=== PATIENT | male | born 1965 | race African-American/Black ===

== ENCOUNTER → 2022-05-30 09:04 | Outpatient (BNVA) | payer OTHER, SELFPAY | PROVIDERS: PCP Internal Medicine; Visit Provider Nurse Practitioner Family | DX: Z13.89 Encounter for screening for other disorder (principal) ==

== ENCOUNTER 2022-06-10 11:34 | Outpatient (REF) | payer OTHER, SELFPAY ==
[2022-06-10 12:44] LABS: Blood Urea Nitrogen 13 mg/dL (9-16); Estimated Glomerular Filt Rate > 60
== END 2022-06-10 11:35 | disposition home or self-care (01) ==
LOC: HO.LAB 11:34
PROVIDERS: PCP Internal Medicine; Visit Provider Nurse Practitioner Family
DX: R31.29 Other microscopic hematuria (principal)
CPT/HCPCS: 36415; 82565; 84520

== ENCOUNTER 2022-07-20 09:05 | Outpatient (REF) | payer OTHER, SELFPAY ==
--- NOTE | ~2022-07-20 | CT_ITS ---
EXAMINATION: CT ABDOMEN AND PELVIS WITHOUT AND WITH CONTRAST CLINICAL INFORMATION: Gross hematuria COMPARISON: None available. TECHNIQUE: Noncontrast CT of the abdomen and pelvis is performed followed by split bolus contrast-enhanced images using 85 mL Omnipaque 350 contrast.? Postcontrast imaging is performed during the combined nephrogram and excretion phase. Sagittal and coronal reformatted images were obtained on the technologist's workstation for both the precontrast and postcontrast phases. This CT examination was performed using dose optimization techniques as appropriate, variously including the following: *Automated exposure control *Adjustment of mA and/or kV according to patient size (this includes techniques or standardized protocols for targeted exams where dose is matched to indication/reason for exam; i.e. extremities or head) *Use of iterative reconstruction technique DLP: 684 mGy-cm FINDINGS: LUNG BASES: The visualized lung bases are unremarkable. LIVER, GALLBLADDER, AND BILIARY TREE: The liver is normal in size, shape, and attenuation. Small 3 mm low-attenuation lesion in the right lobe of the liver axial image 19 series 8. This is too small to definitively characterize but probably represents a cyst. No other focal liver lesion. No biliary duct dilatation. Normal gallbladder. PANCREAS: Unremarkable. SPLEEN: The spleen is small. ADRENAL GLANDS: Unremarkable. KIDNEYS AND URETERS: No stone or mass is seen. There are small bilateral renal cysts. No imaging follow-up recommended. The kidneys are lobulated in shape. There is mild fullness of both renal pelvises. There may be mild left calyceal dilatation. The ureters are normal in caliber. No stone. BLADDER: There is a filling defect seen in the dependent posterior inferior bladder wall. This area measures 0.6-1.9 cm in AP and transverse dimension axial image 5 series 9 and is questionable for a mass. The bladder is otherwise normal. GASTROINTESTINAL TRACT: Mild diverticulosis of the colon. Small and large bowel is otherwise normal. The appendix is normal. ABDOMINAL WALL: No significant hernia is appreciated. LYMPH NODES: Normal. VASCULAR: Atherosclerotic disease. No aneurysm. PELVIC VISCERA: Unremarkable. OSSEUS STRUCTURES: Spondylosis, spondylolysis and degenerative disc disease at L5-S1. Old trauma to the lower sacrum and coccyx. CT/CT urogram IMPRESSION: 1. Question 0.6-1.9 cm mass in the dependent posterior inferior bladder wall. Correlation with cystoscopy recommended. Mild fullness of both renal pelvises. No stone or mass seen. 2. Findings will be communicated by the [facility] work flow batch maker.
[2022-07-20] MEDS: iohexoL 350 MG/ML 100 ML INFUS..BTL IV (09:45)
[2022-07-20 13:17] LABS: Creatinine POC 0.7 mg/dL (0.5-1.4); GFR POC 60
== END 2022-07-20 09:06 | disposition home or self-care (01) ==
LOC: HO.CT 09:05
PROVIDERS: PCP Internal Medicine; Visit Provider Nurse Practitioner Family
DX: R31.0 Gross hematuria (principal)
CPT/HCPCS: 74178; 82565; Q9967

== ENCOUNTER 2022-07-22 15:13 | Outpatient (AMB) | payer OTHER, SELFPAY ==
--- NOTE | 2022-07-22 15:18 | MHC.OFFVIS ---
Intake Intake Visit Reasons: cysto/CT/labs(07/20 CT) Intake Note: Patient is present for Cystoscopy Urology Med: none Antibiotic Allergy: None Blood Thinner: None Allergies No Known Allergies Allergy (Verified 10/21/22 11:14) HPI HPI Comments History of Present Illness Details Alfonso is a pleasant male. He is a patient of . He seen for the following urologic conditions - microscopic hematuria Here for check cystoscopy Clear on evaluation Has three-month follow-up with nurse practitioner for lab work Microscopic hematuria Longstanding smoking history 40 pack per year Prior evaluation 2004 for cystoscopy Denies exposures PSA 01/01 0.2 Imaging - CT urogram normal PFSH Medical History Anxiety Hematuria, microscopic Hypertension Impaired fasting glucose Nocturia Tobacco use Review of Systems Const Denies chills and Denies fever(s) Card Reports no additional complaints and Denies syncope Resp Denies cough GI Denies abdominal pain and Denies heartburn Reports as per HPI and Denies change in libido Neuro Denies syncope Psych Denies change in libido Endo Denies change in libido Physical Exam Const General: cooperative, healthy appearing, comfortable and no acute distress Orientation/consciousness: patient oriented x3 HEENT Face and sinus: Yes normal facial exam Mouth: moist mucous membranes Neck Neck: Yes normal visual inspection, Yes full ROM and Yes trachea midline Chest Chest palpation & inspection: normal inspection of the chest Resp Effort & Inspection: normal respiratory effort, able to speak in complete sentences and no respiratory distress GI Inspection: Yes normal to inspection Back/Spine/Pelvis Cervical Spine: normal cervical lordosis Thoracic/Lumbar Spine: thoracic and lumbar spine normal to inspection Skin General skin exam: no rashes or lesions noted Neuro General: patient oriented x3, gait normal, tone normal and moves all extremities Extrem General: Yes normal to inspection and Yes capillary refill normal Office Procedures Cystoscopy Consent Discussed risk and benefit or proposed procedure with the patient. Information consent for procedure given to the patient. Discussed technical aspects, risks, benefits and alternatives in full. Addressed all of the patient's questions and concerns regarding the procedure. The patient demonstrated knowledge and understanding. They wish to proceed with this procedure. Preparation The patient was prepped in the usual manner. A pulmonologist intensivist was present and in the room. Genitalia was prepped with betadine solution in a sterile manner. Lidocaine Jelly 2% was placed into the urethra and 16Fr flexible Olympus cystoscope was inserted into the meatus after adequate lubrication. Procedure Meatus circumcised Urethra anterior posterior urethra normal Prostatic Urethra unremarkable Bladder examination with retroflexion of cystoscope Bladder Orifices normal shape and position Bladder Capacity - Trabeculations - Cellule Formation - Diverticulum Formation - Mucosal Erythema -- Bladder Tumor - [id number] Procedure code (CPT) selection complete Office Meds lidocaine HCl Performing Provider: Mustapha Schulz MD Administered by: James Merino RN on 07/22/22 15:18 Dose Route Admin Location Lot Number Expiration Date NDC Gluing Crew Leader 10 mL intra-urethral nitrofurantoin monohyd/m-cryst 100 mg Performing Provider: Mustapha Schulz MD Administered by: James Merino RN on 07/22/22 15:18 Dose Route Admin Location Lot Number Expiration Date NDC Gluing Crew Leader 100 mg PO Results AMB Urinalysis, Automated UA Leukoctes 0 Fallon/uL Last Edit by Roz Perez RN on 07/22/22 15:49 UA Nitrite Last Edit by Roz Perez RN on 07/22/22 15:49 UA Urobilinogen 0.2 mg/dL Last Edit by Roz Perez RN on 07/22/22 15:49 UA Protein 15 mg/dL Last Edit by Roz Perez RN on 07/22/22 15:49 UA pH 6 Last Edit by Roz Perez RN on 07/22/22 15:49 UA Blood 0.2 Richard/uL Last Edit by Roz Perez RN on 07/22/22 15:49 UA Specific [place] 1.020 Last Edit by Roz Perez RN on 07/22/22 15:49 UA Ketone Last Edit by Roz Perez RN on 07/22/22 15:49 UA Bilirubin 0 mg/dL Last Edit by Roz Perez RN on 07/22/22 15:49 UA Glucose mg/dL Last Edit by Roz Perez RN on 07/22/22 15:49 Results Reviewed Results Reviewed: Laboratory Last Values Urine pH (Auto) 6 07/22/22 15:46 Specific [place] (Auto) 1.020 07/22/22 15:46 Urine Protein (Auto) 15 mg/dL 07/22/22 15:46 Urine Blood (Auto) 0.2 Richard/uL 07/22/22 15:46 Urine Bilirubin (Auto) 0 mg/dL 07/22/22 15:46 Urine Urobilinogen (Auto) 0.2 mg/dL 07/22/22 15:46 Leukocyte Esterase (Auto) 0 Fallon/uL 07/22/22 15:46 Assessment & Plan Assessment & Plan (1) Microscopic hematuria: Code(s): R31.29 - Other microscopic hematuria Plan Three month follow-up Orders: Orders Prostate Specific Antigen 3 Months R31.29 - Other microscopic hematuria AMB Cystoscopy 07/22/22 R31.29 - Other microscopic hematuria AMB Urinalysis Automated 07/22/22 Z13.9 - Encounter for screening, unspecified Patient Instructions: Imaging studies, laboratory and physical exam results were discussed and reviewed in detail. No major barriers to patient understanding were identified. An opportunity to ask questions regarding the treatment plan was provided. All questions were answered. The patient expressed understanding and agreement with the above treatment plan. The patient is aware they should contact our office by phone for worsening of their current condition or the appearance of new urologic symptoms. Compliance is encouraged with any medications and followup testing that is ordered. It is a privilege to participate in the urologic care of your patient. If you have any questions or concerns regarding treatment for the above conditions, or other urologic issues, please do not hesitate to contact me. The office telephone contact is [phone]. This note is constructed using voice recognition software. While every effort has been made to ensure accuracy extrusion press adjuster errors may have been included. Yours sincerely, Dr Mustapha Schulz MD, YUDI [facility] - Urology Providers of Expert, Compassionate Care for the Genitourinary System Coding Level of Care Code Est Pt Level 3 (36358) Diagnoses Microscopic hematuria R31.29 CPT Codes Cystoscopy - CPT: 02907-[id number] ([id number])
== END 2022-07-22 16:16 | disposition home or self-care (01) ==
LOC: HO.HUSH 15:13
PROVIDERS: PCP Internal Medicine; Visit Provider Urology
DX: R31.29 Other microscopic hematuria (principal)
CPT/HCPCS: 52000; 99213

== ENCOUNTER → 2022-07-22 15:13 | Outpatient (BNVA) | payer OTHER, SELFPAY | PROVIDERS: PCP Internal Medicine; Visit Provider Urology | DX: R31.29 Other microscopic hematuria (principal); R35.1 Nocturia | CPT/HCPCS: 52000 ==

== ENCOUNTER 2022-10-18 14:18 | Outpatient (REF) | payer OTHER, SELFPAY ==
[2022-10-18 16:17] LABS: Prostate Specific Antigen 0.29 ng/mL (<0.05-4.0)
== END 2022-10-18 14:19 | disposition home or self-care (01) ==
LOC: HO.LAB 14:18
PROVIDERS: PCP Internal Medicine; Visit Provider Urology
DX: R31.29 Other microscopic hematuria (principal); Z12.5 Encounter for screening for malignant neoplasm of prostate
CPT/HCPCS: 36415; 84153

== ENCOUNTER 2022-10-21 10:51 | Outpatient (AMB) | payer OTHER, SELFPAY ==
--- NOTE | 2022-10-21 10:52 | A.OFFVIS_ITS ---
Intake Intake Visit Reasons: 3 month follow up Intake Note: Patient presents for follow up PSA lab/Micro Hematuria (psa 0.29) Urology Medications: Tadalafil Blood Thinner: None Associate Professor Of Biology Required: No Accompanied by: Self / Same As Patient Allergies No Known Allergies Allergy (Verified 10/21/22 11:14) Medication List - Last Reconciled 10/21/22 by VIJAY VidalP- amlodipine 10 mg PO DAILY irbesartan 300 mg PO DAILY tadalafil (Cialis) 5 mg PO DAILY 90 days HPI HPI Comments History of Present Illness Details Alfonso is a pleasant 57 year old male patient of Dr. Parminder Dubois. He has a past medical history of anxiety, hypertension, and nocturia He presents to the office today for follow-up. Of note, patient was seen approximately 3 months ago at which time he underwent an in office cystoscopy for microscopic hematuria in the setting of nicotine dependence. CT with question of 0.6-1.9 cm mass in the dependent posterior inferior bladder wall. However, during in office cystoscopy no suspicious bladder lesions noted throughout the bladder. When asked patient reports to be doing and feeling well. He reports significant improvement in nocturia and lower urinary tract symptoms on 5 mg of tadalafil daily and is requesting a refill. He otherwise denies any issues or concerns at this time. Unable to obtain urine for urinalysis as patient is unable to void at this time. When asked he currently denies urinary urgency, urinary frequency, incontinence, nocturia, hematuria, dysuria, foul smelling urine, changes to urinary stream, flank pain, fever, and or chills. He is happy with his current voiding parameters on 5 mg of Cialis daily. Discussed at length importance of limiting/quitting smoking for im provement in urinary symptoms as well as for overall health and well-being. In review of patient's chart PSAs are as follows 01/01--0.2 11/02-- 0.3 Discussed at length potential causes for microscopic hematuria and surveillance monitoring. Discussed obtaining urine cytology. He otherwise offers no issues or concerns at this time. PFSH Medical History Anxiety Hematuria, microscopic Hypertension Impaired fasting glucose Nocturia Tobacco use Review of Systems Const All systems reviewed & are unremarkable except as noted in HPI and below Reports no additional complaints Eyes Reports no additional complaints ENT Reports no additional complaints Card Reports no additional complaints Resp Reports no additional complaints GI Reports no additional complaints Reports as per HPI Musc Reports no additional complaints Neuro Reports no additional complaints Psych Reports no additional complaints Endo Reports no additional complaints Alvin/Lymph Reports no additional complaints Aller/Immun Reports no additional complaints Physical Exam Const General: cooperative, healthy appearing, comfortable, no acute distress, well developed, alert and awake Nutritional Appearance: average body habitus Orientation/consciousness: patient oriented x3 Limitations: no limitations HEENT Head: Yes normal to inspection, Yes normocephalic and Yes atraumatic Ears: hearing grossly normal bilaterally Eyes General: appearance normal, both eyes and all related structures Neck Neck: Yes normal visual inspection and Yes trachea midline Chest Chest palpation & inspection: normal inspection of the chest Resp Effort & Inspection: normal respiratory effort and able to speak in complete sentences Cardio Rate: regular rate GI Inspection: Yes normal to inspection Rectal Exam - Male: Yes deferred General: Yes no CVA tenderness Back/Spine/Pelvis Back: no CVA tenderness Skin General skin exam: no rashes or lesions noted Neuro General: patient oriented x3 Extrem General: Yes normal to inspection Psych Appearance: grossly normal and well kempt Mental Status: mental status grossly normal Speech and movement: Normal speech and movement present and Clear speech present Affect: normal affect Attitude: cooperative Thought process: Normal thought process present Thought content: Normal thought content present Insight: Good insight present (Psych) Judgement: Good judgement present (Psych) Assessment & Plan Assessment & Plan (1) Microscopic hematuria: Code(s): R31.29 - Other microscopic hematuria (2) Nicotine dependence: Code(s): F17.200 - Nicotine dependence, unspecified, uncomplicated (3) Lower urinary tract symptoms: Code(s): R39.9 - Unspecified symptoms and signs involving the genitourinary system Plan Unable to obtain urine for urinalysis and or cytology Recent PSA results reviewed with the patient today;as noted above Patient reports significant improvement in lower urinary tract symptoms and erections on 5 mg of Cialis daily; will continue; refill provided as requested Discussed at length potential causes for microscopic hematuria. Discussed at length importance of limiting/quitting smoking for overall health and well-being. Cytology ordered Follow-up in 6 months; or sooner with any issues, concerns, and or questions. Orders: Orders Urine Cytology 10/21/22 F17.200 - Nicotine dependence, unspecified, uncomplicated, R31.29 - Other microscopic hematuria AMB Urinalysis Automated 10/21/22 Z13.9 - Encounter for screening, unspecified Medications: Refilled tadalafil (Cialis) [id number] [facility] [id number] Member [id number] 5 mg PO DAILY 90 days 90 tabs 3RF Patient Instructions: The patient had an opportunity to ask questions regarding the treatment plan. All questions were answered. Physical exam, labs, and imaging were discussed and reviewed in detail. As well as risks, benefits, and discussion of treatment choices. No major barriers to understanding were identified. The patient expressed understanding and agreement with the above treatment plan. The patient was made aware they should contact our office by phone for worsening of their current condition, the appearance of new symptoms, or with any questions or concerns. Compliance is encouraged with any medications and follow up testing that is ordered. It is a privilege to be allowed the opportunity to participate in? your urological care.? Again, if you have any questions or concerns If you have any questions or concerns please do not hesitate to contact me. The office is [phone]. This note is constructed using voice recognition software. While every effort has been made to ensure accuracy battery builder errors may have been included. Yours sincerely, TOM Vidal Coding Level of Care Code Est Pt Level 3 (47632) Diagnoses Microscopic hematuria R31.29 Nicotine dependence F17.200 Lower urinary tract symptoms R39.9
== END 2022-10-21 11:15 | disposition home or self-care (01) ==
PROVIDERS: Visit Provider Nurse Practitioner Family
DX: R31.29 Other microscopic hematuria (principal); F17.200 Nicotine dependence, unspecified, uncomplicated; R39.9 Unspecified symptoms and signs involving the genitourinary system
CPT/HCPCS: 99213

== ENCOUNTER → 2022-10-21 10:51 | Outpatient (BNVA) | payer OTHER, SELFPAY | PROVIDERS: Visit Provider Nurse Practitioner Family ==

== ENCOUNTER 2023-04-21 10:31 | Outpatient (AMB) | payer OTHER, SELFPAY ==
--- NOTE | 2023-04-21 11:09 | A.OFFVIS_ITS ---
Intake Intake Visit Reasons: 6m/ cytology Intake Note: Patient is Present for Follow Up Cytology Urology Medication: Tadalafil Antibiotic Allergies: None Blood Thinners: None Allergies No Known Allergies Allergy (Verified 10/21/22 11:14) Medication List - Last Reconciled 04/21/23 by TOM Vidal amlodipine 10 mg PO DAILY irbesartan 300 mg PO DAILY tadalafil (Cialis) 5 mg PO DAILY 90 days HPI HPI Comments History of Present Illness Details Alfonso is a pleasant 58 year old male patient of Dr. Parminder Dubois. He has a past medical history of anxiety, hype rtension, and nocturia He presents to the office today for follow-up. He presents to the office today for follow-up of his microscopic hematuria in the setting of nicotine dependence. Of note, patient has previously underwent workup with and no suspicious bladder lesions were noted throughout the bladder. He is unable to give urine for urinalysis today. When asked he denies any bothersome urinary issues or concerns. He denies urinary urgency, urinary frequency, incontinence, nocturia, hematuria, dysuria, foul smelling urine, changes to urinary stream, flank pain, fever, and or chills. He is happy with his current voiding parameters on 5 mg of Cialis daily. Discussed obtaining retroperitoneal ultrasound for further assessment evaluation prior to next office visit versus CT urogram as patient continues with nicotine dependence however will obtain ultrasound instead due to risk of continuation of radiation with CT. Discussed at length importance of limiting/quitting smoking for impr ovement in urinary symptoms as well as for overall health and well-being. In review of patient's chart PSAs are as follows 01/01--0.2 11/02-- 0.3 Discussed at length potential causes for microscopic hematuria and surveillance monitoring. Discussed obtaining urine cytology. He otherwise offers no issues or concerns at this time. [facility] Medical History Impaired fasting glucose Hematuria, microscopic Nocturia Anxiety Tobacco use Hypertension Review of Systems Const All systems reviewed & are unremarkable except as noted in HPI and below Reports no additional complaints Eyes Reports no additional complaints ENT Reports no additional complaints Card Reports no additional complaints Resp Reports no additional complaints GI Reports no additional complaints Reports as per HPI Musc Reports no additional complaints Neuro Reports no additional complaints Psych Reports no additional complaints Endo Reports no additional complaints Alvin/Lymph Reports no additional complaints Aller/Immun Reports no additional complaints Physical Exam Const General: cooperative, healthy appearing, comfortable, no acute distress, well developed, alert and awake Nutritional Appearance: average body habitus Orientation/consciousness: patient oriented x3 Limitations: no limitations HEENT Head: Yes normal to inspection, Yes normocephalic and Yes atraumatic Ears: hearing grossly normal bilaterally Eyes General: appearance normal, both eyes and all related structures Neck Neck: Yes normal visual inspection and Yes trachea midline Chest Chest palpation & inspection: normal inspection of the chest Resp Effort & Inspection: normal respiratory effort and able to speak in complete sentences Cardio Rate: regular rate GI Inspection: Yes normal to inspection Rectal Exam - Male: Yes deferred General: Yes no CVA tenderness Back/Spine/Pelvis Back: no CVA tenderness Skin General skin exam: no rashes or lesions noted Neuro General: patient oriented x3 Extrem General: Yes normal to inspection Psych Appearance: grossly normal and well kempt Mental Status: mental status grossly normal Speech and movement: Normal speech and movement present and Clear speech present Affect: normal affect Attitude: cooperative Thought process: Normal thought process present Thought content: Normal thought content present Insight: Good insight present (Psych) Judgement: Good judgement present (Psych) Assessment & Plan Assessment & Plan (1) Nicotine dependence: Code(s): F17.200 - Nicotine dependence, unspecified, uncomplicated (2) Microscopic hematuria: Code(s): R31.29 - Other microscopic hematuria (3) Lower urinary tract symptoms: Code(s): R39.9 - Unspecified symptoms and signs involving the genitourinary system Plan Unable to obtain urine for urinalysis and or cytology Patient reports significant improvement in lower urinary tract symptoms and erections on 5 mg of Cialis daily; will continue; refill provided as requested Discussed at length potential causes for microscopic hematuria. Discussed at length importance of limiting/quitting smoking for overall health and well-being. Cytology ordered Will obtain retroperitoneal ultrasound in 6 months Follow-up in 6 months; or sooner with any issues, concerns, and or questions. Orders: Orders AMB Urinalysis Automated Today Z13.9 - Encounter for screening, unspecified US retroperitoneal comp Today F17.200 - Nicotine dependence, unspecified, uncomplicated, R31.29 - Other microscopic hematuria Urine Cytology Today F17.200 - Nicotine dependence, unspecified, uncomplicated, R31.29 - Other microscopic hematuria Medications: Refilled tadalafil (Cialis) [id number] [facility] [id number] Member [id number] 5 mg PO DAILY 90 days 90 tabs 3RF Patient Instructions: The patient had an opportunity to ask questions regarding the treatment plan. All questions were answered. Physical exam, labs, and imaging were discussed and reviewed in detail. As well as risks, benefits, and discussion of treatment choices. No major barriers to understanding were identified. The patient expressed understanding and agreement with the above treatment plan. The patient was made aware they should contact our office by phone for worsening of their current condition, the appearance of new symptoms, or with any questions or concerns. Compliance is encouraged with any medications and follow up testing that is ordered. It is a privilege to be allowed the opportunity to participate in? your urological care.? Again, if you have any questions or concerns If you have any questions or concerns please do not hesitate to contact me. The office is [phone]. This note is constructed using voice recognition software. While every effort has been made to ensure accuracy news videographer errors may have been included. Yours sincerely, TOM Vidal Coding Level of Care Code Est Pt Level 3 (47700) Diagnoses Nicotine dependence F17.200 Microscopic hematuria R31.29 Lower urinary tract symptoms R39.9
== END 2023-04-21 11:22 | disposition home or self-care (01) ==
PROVIDERS: PCP Internal Medicine; Visit Provider Nurse Practitioner Family
DX: F17.200 Nicotine dependence, unspecified, uncomplicated (principal); R31.29 Other microscopic hematuria; R39.9 Unspecified symptoms and signs involving the genitourinary system
CPT/HCPCS: 99213

== ENCOUNTER → 2023-04-21 10:31 | Outpatient (BNVA) | payer OTHER, SELFPAY | PROVIDERS: PCP Internal Medicine; Visit Provider Nurse Practitioner Family ==

== ENCOUNTER 2023-09-08 10:00 | Outpatient (REF) | payer OTHER, SELFPAY ==
--- NOTE | ~2023-09-08 | US_ITS ---
EXAMINATION: US RETROPERITONEAL COMPLETE (RENAL) CLINICAL INFORMATION: Microscopic hematuria. COMPARISON: CT urogram 07/20/2022. TECHNIQUE: Real-time imaging of the kidneys and bladder. FINDINGS: RIGHT KIDNEY: 13.5 x 5.0 x 5.6 cm (SAG x AP x TRV). The kidney is normal in size, contour, and echogenicity. Renal cortical thickness is normal. No renal calculi. Mild hydronephrosis. 1.6 x 1.1 x 1.3 cm upper pole and 1.2 x 1.0 x 1.2 cm lower pole cysts are seen, no imaging follow-up recommended. LEFT KIDNEY: 13.5 x 5.8 x 5.0 cm (SAG x AP x TRV). The kidney is normal in size, contour, and echogenicity. Renal cortical thickness is normal. No renal calculi. Mild hydronephrosis. 0.9 x 0.9 cm lower pole cyst with septation and 0.8 x 0.9 x 1.0 cm mid renal cyst are seen, no imaging follow-up is recommended. BLADDER: Well distended and normal. Bilateral ureteral jets are demonstrated. Prevoid bladder volume is 210 mL. Postvoid bladder volume is 18 mL. ADDITIONAL FINDINGS: The prostate is not enlarged, measures 15.3 mL. US/US retroperitoneal comp IMPRESSION: 1. Mild bilateral hydronephrosis. 2. Small post void residual.
== END 2023-09-08 10:01 | disposition home or self-care (01) ==
LOC: HO.US 10:00
PROVIDERS: Visit Provider Nurse Practitioner Family
DX: R31.29 Other microscopic hematuria (principal); F17.200 Nicotine dependence, unspecified, uncomplicated
CPT/HCPCS: 76770

== ENCOUNTER 2023-10-20 10:50 | Outpatient (AMB) | payer OTHER, SELFPAY ==
--- NOTE | 2023-10-20 11:00 | A.OFFVIS_ITS ---
Intake Visit Reasons: 6m/US(set) Intake Note: Patient presents today for follow up visit on: microhematuria Urology Medication: Tadalafil Antibiotic Allergies: None Blood Thinners: None Control Operator Required: No Accompanied by: Self / Same As Patient Allergies No Known Allergies Allergy (Verified 10/20/23 11:11) Medication List - Last Reviewed 10/20/23 by Tano Johnson amlodipine 10 mg PO DAILY irbesartan 300 mg PO DAILY tadalafil (Cialis) 5 mg PO DAILY 90 days HPI Comments Details: Alfonso is a pleasant 58 year old male patient of Dr. Parminder Dubois. He has a past medical history of anxiety, hypertension, and nocturia He presents to the office today for follow-up. He presents to the office today for follow-up of his microscopic hematuria in the setting of nicotine dependence. Of note, patient has previously underwent workup with in office cystoscopy 08/02 that noted no suspicious bladder lesions throughout the bladder. When asked he denies any bothersome urinary issues or concerns. He denies urinary urgency, urinary frequency, incontinence, nocturia, hematuria, dysuria, foul smelling urine, changes to urinary stream, flank pain, fever, and or chills. He is happy with his current voiding parameters on 5 mg of Cialis daily. Recent retroperitoneal ultrasound results reviewed with the patient today. Bilateral kidneys with no nephrolithiasis. Bilateral renal cysts are seen that require no imaging follow-up per radiology report. Mild hydronephrosis. The bladder is well distended and normal. Bilateral jets are demonstrated. Pre void bladder volume is approximately 200 mL. Postvoid volume is approximately 20 mL. The prostate is not enlarged measuring approximately 15 mL Discussed at length importance of limiting/quitting smoking for improvement in urinary symptoms as well as for overall health and well-being. In review of patient's chart PSAs are as follows: 01/01 0.2, 11/02 0.3 BUN: 06/02 13, 08/03 12 Creatinine:06/02 0.81, 0.79 Discussed at length potential causes for microscopic hematuria and surveillance monitoring. Urine cytology 08/03 negative for high-grade urethral carcinoma. He otherwise offers no issues or concerns at this time. [facility] Medical History Impaired fasting glucose Hematuria, microscopic Nocturia Anxiety Tobacco use Hypertension Review of Systems Const All systems reviewed & are unremarkable except as noted in HPI and below Reports no additional complaints Eyes Reports no additional complaints ENT Reports no additional complaints Card Reports no additional complaints Resp Reports no additional complaints GI Reports no additional complaints Reports as per HPI Musc Reports no additional complaints Neuro Reports no additional complaints Psych Reports no additional complaints Endo Reports no additional complaints Alvin/Lymph Reports no additional complaints Aller/Immun Reports no additional complaints Physical Exam Const General: cooperative, healthy appearing, comfortable, no acute distress, well developed, alert and awake Nutritional Appearance: average body habitus Orientation/consciousness: patient oriented x3 Limitations: no limitations HEENT Head: Yes normal to inspection, Yes normocephalic and Yes atraumatic Ears: hearing grossly normal bilaterally Eyes General: appearance normal, both eyes and all related structures Neck Neck: Yes normal visual inspection and Yes trachea midline Chest Chest palpation & inspection: normal inspection of the chest Resp Effort & Inspection: normal respiratory effort and able to speak in complete sentences Cardio Rate: regular rate GI Inspection: Yes normal to inspection Rectal Exam - Male: Yes deferred General: Yes no CVA tenderness Back/Spine/Pelvis Back: no CVA tenderness Skin General skin exam: no rashes or lesions noted Neuro General: patient oriented x3 Extrem General: Yes normal to inspection Psych Appearance: grossly normal and well kempt Mental Status: mental status grossly normal Speech and movement: Normal speech and movement present and Clear speech present Affect: normal affect Attitude: cooperative Thought process: Normal thought process present Thought content: Normal thought content present Insight: Fair insight present (Psych) Judgement: Fair judgement present (Psych) Results Reviewed Results Reviewed: Date of Service: 09/08/23 EXAMINATION: US RETROPERITONEAL COMPLETE (RENAL) FINDINGS: RIGHT KIDNEY: 13.5 x 5.0 x 5.6 cm (SAG x AP x TRV). The kidney is normal in size, contour, and echogenicity. Renal cortical thickness is normal. No renal calculi. Mild hydronephrosis. 1.6 x 1.1 x 1.3 cm upper pole and 1.2 x 1.0 x 1.2 cm lower pole cysts are seen, no imaging follow-up recommended. LEFT KIDNEY: 13.5 x 5.8 x 5.0 cm (SAG x AP x TRV). The kidney is normal in size, contour, and echogenicity. Renal cortical thickness is normal. No renal calculi. Mild hydronephrosis. 0.9 x 0.9 cm lower pole cyst with septation and 0.8 x 0.9 x 1.0 cm mid renal cyst are seen, no imaging follow-up is recommended. BLADDER: Well distended and normal. Bilateral ureteral jets are demonstrated. Prevoid bladder volume is 210 mL. Postvoid bladder volume is 18 mL. ADDITIONAL FINDINGS: The prostate is not enlarged, measures 15.3 mL. IMPRESSION: 1. Mild bilateral hydronephrosis. 2. Small post void residual. Assessment & Plan Assessment & Plan (1) Microscopic hematuria: Code(s): R31.29 - Other microscopic hematuria Category: Medical (2) Nicotine dependence: Code(s): F17.200 - Nicotine dependence, unspecified, uncomplicated Category: Medical (3) Lower urinary tract symptoms: Code(s): R39.9 - Unspecified symptoms and signs involving the genitourinary system Category: Medical Plan Unable to obtain urinalysis as patient unable to void Recent retroperitoneal ultrasound results reviewed with the patient today; as noted above. Recent urine cytology results reviewed with the patient today; as noted above. Patient reports significant improvement in lower urinary tract symptoms and erections on 5 mg of Cialis daily; will continue; refill provided as requested Discussed at length potential causes for microscopic hematuria. Discussed at length importance of limiting/quitting smoking for overall health and well-being. Will obtain BUN, creatinine, and PSA in 1 year. Will obtain retroperitoneal ultrasound in 1 year Follow-up in 1 year with imaging and labs to be completed prior; or sooner with any issues, concerns, and or questions. Orders: Orders US retroperitoneal comp 1 Year F17.200 - Nicotine dependence, unspecified, uncomplicated, R31.29 - Other microscopic hematuria, R39.9 - Unspecified symptoms and signs involving the genitourinary system Blood Urea Nitrogen 1 Year F17.200 - Nicotine dependence, unspecified, uncomplicated, R31.29 - Other microscopic hematuria, R39.9 - Unspecified symptoms and signs involving the genitourinary system Creatinine 1 Year F17.200 - Nicotine dependence, unspecified, uncomplicated, R31.29 - Other microscopic hematuria, R39.9 - Unspecified symptoms and signs involving the genitourinary system Prostate Specific Antigen 1 Year F17.200 - Nicotine dependence, unspecified, uncomplicated, R31.29 - Other microscopic hematuria, R39.9 - Unspecified symptoms and signs involving the genitourinary system Patient Instructions: The patient had an opportunity to ask questions regarding the treatment plan. All questions were answered. Physical exam, labs, and imaging were discussed and reviewed in detail. As well as risks, benefits, and discussion of treatment choices. No major barriers to understanding were identified. The patient expressed understanding and agreement with the above treatment plan. The patient was made aware they should contact our office by phone for worsening of their current condition, the appearance of new symptoms, or with any questions or concerns. Compliance is encouraged with any medications and follow up testing that is ordered. It is a privilege to be allowed the opportunity to participate in? your urological care.? Again, if you have any questions or concerns If you have any questions or concerns please do not hesitate to contact me. The office is [phone]. This note is constructed using voice recognition software. While every effort has been made to ensure accuracy guidance adviser errors may have been included. Yours sincerely, TOM Vidal Coding Level of Care Code Est Pt Level 3 (23160) Diagnoses Microscopic hematuria R31.29 Nicotine dependence F17.200 Lower urinary tract symptoms R39.9
== END 2023-10-20 11:29 | disposition home or self-care (01) ==
PROVIDERS: PCP Internal Medicine; Visit Provider Nurse Practitioner Family
DX: R31.29 Other microscopic hematuria (principal); F17.200 Nicotine dependence, unspecified, uncomplicated; R39.9 Unspecified symptoms and signs involving the genitourinary system
CPT/HCPCS: 99213

== ENCOUNTER → 2023-10-20 10:50 | Outpatient (BNVA) | payer OTHER, SELFPAY | PROVIDERS: PCP Internal Medicine; Visit Provider Nurse Practitioner Family ==

== ENCOUNTER 2024-11-01 11:33 | Outpatient (REF) | payer OTHER, SELFPAY ==
--- NOTE | ~2024-11-01 | US_ITS ---
EXAMINATION: US RETROPERITONEAL COMPLETE (RENAL) CLINICAL INFORMATION: Microscopic hematuria.. COMPARISON: September 08, 2023. Correlated to CT abdomen and pelvis dated July 20, 2022. TECHNIQUE: Real-time imaging of the kidneys and bladder. FINDINGS: RIGHT KIDNEY: 13 x 5 x 6 cm (SAG x AP x TRV). Normal echotexture. Normal renal cortical thickness. No hydronephrosis. There is a 1.6 cm anechoic lesion in the lower pole of the corticomedullary junction. There is a 2.2 cm anechoic lesion at the corticomedullary junction of the upper pole. No nodular components. No septations.. No flow on color Doppler interrogation. LEFT KIDNEY: 13 x 4 x 4 cm (SAG x AP x TRV). Normal echotexture. Normal renal cortical thickness. No hydronephrosis. There is a 1.2 cm anechoic lesion at the renal cortex of the lower pole with questionable calcification. No flow on color Doppler interrogation. BLADDER: Fluid-filled. Bilateral ureteral jets are demonstrated. Prevoid bladder volume is 209 mL. Postvoid bladder volume is 8 mL. Prostate gland measures 3.3 x 3.1 x 2.4 cm and volume: 13 cc. US/US retroperitoneal comp IMPRESSION: No hydronephrosis. No gross nephrolithiasis. Simple cyst, right kidney. 1.2 cm complex cystic lesion, lower pole left kidney. Electronically signed by: Henry Amador MD 11/04/2024 07:12 AM EDT
[2024-11-01 12:57] LABS: Blood Urea Nitrogen 12 mg/dL (9-16); Estimated Glomerular Filt Rate > 60
[2024-11-01 13:43] LABS: Prostate Specific Antigen 0.22 ng/mL (<0.05-4.0)
== END 2024-11-01 11:34 | disposition home or self-care (01) ==
LOC: HO.US 11:33
PROVIDERS: Visit Provider Nurse Practitioner Family
DX: Z12.5 Encounter for screening for malignant neoplasm of prostate (principal); R31.29 Other microscopic hematuria; R39.9 Unspecified symptoms and signs involving the genitourinary system; F17.200 Nicotine dependence, unspecified, uncomplicated
CPT/HCPCS: 36415; 76770; 82565; 84153; 84520

== ENCOUNTER → 2024-11-01 11:35 | Outpatient (BNV) | payer OTHER, SELFPAY | PROVIDERS: Visit Provider Radiology Diagnostic Radiology | DX: N28.1 Cyst of kidney, acquired (principal) | CPT/HCPCS: 76770 ==

== ENCOUNTER 2024-11-13 14:45 | Outpatient (AMB) | payer OTHER, SELFPAY ==
--- NOTE | 2024-11-13 14:47 | A.OFFVIS_ITS ---
Intake Visit Reasons: 1y/US Intake Note: Patient presents today for: 1yr/US Urology Medication: Tadalafil Blood Thinners: None imaging done: 11/01/24 Computer System Technician Required: No Accompanied by: Self / Same As Patient Allergies No Known Allergies Allergy (Verified 11/13/24 18:00) Medication List - Last Reconciled 11/13/24 by TOM Vidal amlodipine 10 mg PO DAILY irbesartan 300 mg PO DAILY tadalafil (Cialis) 5 mg PO DAILY 90 days HPI Comments Details: Alfonso is a pleasant 59 year old male patient of Dr. Parminder Dubois. He has a past medical history of anxiety, hypertension, and nocturia He presents to the office today for follow-up. He presents to the office today for follow-up of his microscopic hematuria in the setting of nicotine dependence. Of note, patient has previously underwent workup with in office cystoscopy 08/02 that noted no suspicious bladder lesions throughout the bladder. When asked he denies any bothersome urinary issues or concerns. He denies urinary urgency, urinary frequency, incontinence, nocturia, hematuria, dysuria, foul smelling urine, changes to urinary stream, flank pain, fever, and or chills. He is happy with his current voiding parameters on 5 mg of Cialis daily. Recent retroperitoneal ultrasound results reviewed with the patient today. 11/04 bilateral kidneys with normal echotexture. No hydronephrosis noted bilaterally. The bladder is fluid-filled. Prostate measuring 13 mL. Bilateral simple cysts noted. Discussed at length importance of limiting/quitting smoking for improvement in urinary symptoms as well as for overall health and well-bein g. In review of patient's chart PSAs are as follows: 01/01 0.2, 11/02 0.3, 11/04 0.2 BUN: 06/02 13, 08/03 12, 11/04 12 Creatinine:06/02 0.81, 0.79, 11/04 0.67 Unable to obtain urine for urinalysis today we did discuss obtaining urine for urine cytology given history of microscopic hematuria in the setting of nicotine dependence. Urine cytology 08/03 negative for high-grade urethral carcinoma. He otherwise offers no issues or concerns at this time. [facility] Medical History Impaired fasting glucose Hematuria, microscopic Nocturia Anxiety Tobacco use Hypertension Review of Systems Const All systems reviewed & are unremarkable except as noted in HPI and below Reports no additional complaints Eyes Reports no additional complaints ENT Reports no additional complaints Card Reports no additional complaints Resp Reports no additional complaints GI Reports no additional complaints Reports as per HPI Musc Reports no additional complaints Neuro Reports no additional complaints Psych Reports no additional complaints Endo Reports no additional complaints Alvin/Lymph Reports no additional complaints Aller/Immun Reports no additional complaints Physical Exam Const General: cooperative, healthy appearing, comfortable, no acute distress, well developed, alert and awake Nutritional Appearance: average body habitus Orientation/consciousness: patient oriented x3 Limitations: no limitations HEENT Head: Yes normal to inspection, Yes normocephalic and Yes atraumatic Ears: hearing grossly normal bilaterally Eyes General: appearance normal, both eyes and all related structures Neck Neck: Yes normal visual inspection and Yes trachea midline Chest Chest palpation & inspection: normal inspection of the chest Resp Effort & Inspection: normal respiratory effort and able to speak in complete sentences Cardio Rate: regular rate GI Inspection: Yes normal to inspection Rectal Exam - Male: Yes deferred General: Yes no CVA tenderness Back/Spine/Pelvis Back: no CVA tenderness Skin General skin exam: no rashes or lesions noted Neuro General: patient oriented x3 Extrem General: Yes normal to inspection Psych Appearance: grossly normal and well kempt Mental Status: mental status grossly normal Speech and movement: Normal speech and movement present and Clear speech present Affect: normal affect Attitude: cooperative Thought process: Normal thought process present Thought content: Normal thought content present Insight: Fair insight present (Psych) Judgement: Fair judgement present (Psych) Results Reviewed Results Reviewed: Date of Service: 11/01/24 Procedure(s): US retroperitoneal comp FINDINGS: RIGHT KIDNEY: 13 x 5 x 6 cm (SAG x AP x TRV). Normal echotexture. Normal renal cortical thickness. No hydronephrosis. There is a 1.6 cm anechoic lesion in the lower pole of the corticomedullary junction. There is a 2.2 cm anechoic lesion at the corticomedullary junction of the upper pole. No nodular components. No septations.. No flow on color Doppler interrogation. LEFT KIDNEY: 13 x 4 x 4 cm (SAG x AP x TRV). Normal echotexture. Normal renal cortical thickness. No hydronephrosis. There is a 1.2 cm anechoic lesion at the renal cortex of the lower pole with questionable calcification. No flow on color Doppler interrogation. BLADDER: Fluid-filled. Bilateral ureteral jets are demonstrated. Prevoid bladder volume is 209 mL. Postvoid bladder volume is 8 mL. Prostate gland measures 3.3 x 3.1 x 2.4 cm and volume: 13 cc. IMPRESSION: No hydronephrosis. No gross nephrolithiasis. Simple cyst, right kidney. 1.2 cm complex cystic lesion, lower pole left kidney. Assessment & Plan Assessment & Plan (1) Microscopic hematuria: Code(s): R31.29 - Other microscopic hematuria Category: Medical (2) Nicotine dependence: Code(s): F17.200 - Nicotine dependence, unspecified, uncomplicated Category: Medical (3) Lower urinary tract symptoms: Code(s): R39.9 - Unspecified symptoms and signs involving the genitourinary system Category: Medical (4) Renal cyst: Code(s): N28.1 - Cyst of kidney, acquired Category: Medical Plan Unable to obtain urinalysis as patient unable to void Recent retroperitoneal ultrasound results reviewed with the patient today; as noted above. Recent urine cytology results reviewed with the patient today; as noted above. Patient reports significant improvement in lower urinary tract symptoms and erections on 5 mg of Cialis daily; will continue; refill provided as requested Discussed at length potential causes for microscopic hematuria. Discussed at length importance of limiting/quitting smoking for overall health and well-being. Will obtain PSA in 1 year Will obtain retroperitoneal ultrasound in 1 year We discussed obtaining urine cytology for further assessment evaluation; orders placed. Follow-up in 1 year with imaging and labs to be completed prior; or sooner with any issues, concerns, and or questions. Orders: Orders US retroperitoneal comp 1 Year F17.200 - Nicotine dependence, unspecified, uncomplicated, R31.29 - Other microscopic hematuria Urine Cytology Today F17.200 - Nicotine dependence, unspecified, uncomplicated, R31.29 - Other microscopic hematuria Prostate Specific Antigen 1 Year N40.0 - Benign prostatic hyperplasia without lower urinary tract symptoms Patient Instructions: The patient had an opportunity to ask questions regarding the treatment plan. All questions were answered. Physical exam, labs, and imaging were discussed and reviewed in detail. As well as risks, benefits, and discussion of treatment choices. No major barriers to understanding were identified. The patient expressed understanding and agreement with the above treatment plan. The patient was made aware they should contact our office by phone for worsening of their current condition, the appearance of new symptoms, or with any questions or concerns. Compliance is encouraged with any medications and follow up testing that is ordered. It is a privilege to be allowed the opportunity to participate in? your urological care.? Again, if you have any questions or concerns If you have any questions or concerns please do not hesitate to contact me. The office is [phone]. This note is constructed using voice recognition software. While every effort has been made to ensure accuracy anodic treater errors may have been included. Yours sincerely, TOM Vidal Coding Level of Care Code Est Pt Level 3 (26181) Diagnoses Microscopic hematuria R31.29 Nicotine dependence F17.200 Lower urinary tract symptoms R39.9 Renal cyst N28.1
== END 2024-11-13 15:17 | disposition home or self-care (01) ==
LOC: HO.HUSH 14:46
PROVIDERS: Visit Provider Nurse Practitioner Family
DX: R31.29 Other microscopic hematuria (principal); F17.200 Nicotine dependence, unspecified, uncomplicated; R39.9 Unspecified symptoms and signs involving the genitourinary system; N28.1 Cyst of kidney, acquired
CPT/HCPCS: 99213